=== PATIENT | male | born 1935 | race Caucasian/White ===

== ENCOUNTER 2017-06-13 10:29 | Inpatient (IN) | payer OTHER ==
[2017-06-13] VITALS (9 sets, daily range): BP systolic 127–139; BP diastolic 61–78
[~2017-06-13] VITALS: Ht 172.7 cm; Wt 69.5 kg
[~2017-06-13 10:29] MED LIST: ALTOPREV20 MG PO; AMLODIPINE BESY10 MG PO; CARVEDILOL6.25 MG PO; CLONIDINE HCL0.1 MG PO; DIGITEK250 MC2 PO; HYDRALAZINE HCL10 MG PO; HYZAAR 100-21 TABLET PO; KOMBIGLYZE XR1 EAC2 PO; LANTUS 3 M100 UNITS1 SC; LO-DOSE ASPIRIN81 M1 PO
[2017-06-13 10:52] LABS: BASOPHIL COUNT 0.1 K/uL (0-0.1); EOSINOPHIL (%) 0.3 % (0-5); EOSINOPHIL COUNT 0.1 K/uL (0-0.3); HEMATOCRIT 38.8 % (38.0-50.0); IMMATURE GRANULOCYTE (%) 0.6 % (0.0-0.7); IMMATURE GRANULOCYTE COUNT 0.1 K/uL; INSTRUMENT ABS NEUTROPHIL CT 16.7 K/uL; LYMPHOCYTE COUNT 1.7 K/uL (1.0-2.8); MCH 31.2 PG (29.0-34.0); MCHC 33.2 G/DL (30.0-36.0); MCV 93.9 FL (86-99); MEAN PLAT.VOLUME 11.4 uM^3 (9.0-12.4); MONOCYTE (%) 10.8 % (3-12); MONOCYTE COUNT 2.3 K/uL (0-0.8); NEUTROPHIL (%) 79.8 % (45-76); NEUTROPHIL COUNT 16.7 K/uL (1.8-6.4); PLATELET COUNT 342 K/uL (156-360); RBC DIS.WIDTH-CV 13.7 % (11.8-14.6); RBC DIS.WIDTH-SD 47.1 % (39-53); RED BLOOD COUNT 4.13 M/uL (4.00-5.50); WHITE BLOOD COUNT 20.9 K/uL (4.1-10.2)
[2017-06-13 10:56] LABS: CARBON DIOXIDE (BICARBONATE) 20.4 MEQ/L (20-31)
[2017-06-13 10:59] LABS: PROTHROMBIN TIME 11.1 SEC (10.2-12.9)
[2017-06-13 11:01] LABS: PTT 26.6 SEC (25-37)
[2017-06-13 11:04] LABS: CHLORIDE 103 mEq/L (99-109); POTASSIUM 5.8 mEq/L (3.7-5.4); SODIUM 131 mEq/L (136-147)
[2017-06-13 11:06] LABS: GLUCOSE 197 mg/dL (70-99)
[2017-06-13 11:07] LABS: ANION GAP 13 MEQ/L (2-14)
[2017-06-13 11:10] LABS: GFR ESTIMATE (CALCULATED) 41 mL/min/
[2017-06-13 11:11] LABS: UREA NITROGEN (BUN) 45 mg/dL (9-23)
[2017-06-13 11:13] LABS: TROP-I INTERPRETATION POSITIVE
[2017-06-13 11:17] LABS: TROPONIN-I 13.51 ng/mL (0.0-0.30)
[2017-06-13 11:42] LABS: BASE EXCESS -5.1 mEq/L (-3 to +3); BICARBONATE 18.6 mEq/L (22-26); CARBOXY HGB 1.8 % (0-5); METHEMOGLOBIN 1.2 % (0-1.5); PCO2 30 mm Hg (35-45); PO2 237 mm Hg (80-100)
[2017-06-13 11:43] LABS: COMMENTS - BLOOD GASES A+C+; DEVICE 840; FI02 100 %; MODE SPONT; PEEP 5 CM/H20; PRES. SUPPORT 10 CM/H2O; SITE RR; TOTAL RESP RATE 20 resp/min
[2017-06-13] MEDS ORDERED: ALPHAGAN 0100 DROP/5 RIGHT EYE (11:53)
[2017-06-13 17:55] LABS: METH RESISTANT S AUREUS PCR NEGATIVE (NEGATIVE); PROBE CHECK PASS; SPECIMEN PROCESSING CONTROL PASS
[2017-06-13 18:19] LABS: TROP-I INTERPRETATION POSITIVE; TROPONIN-I 12.32 ng/mL (0.0-0.30)
[2017-06-13 23:58] LABS: POINT-OF-CARE METER ID UU14314082
[2017-06-14] VITALS (18 sets, daily range): BP systolic 108–139; BP diastolic 48–125
[2017-06-14 01:23] LABS: TROP-I INTERPRETATION POSITIVE
[2017-06-14 06:38] LABS: POINT-OF-CARE METER ID UU13113748
[2017-06-14 07:04] LABS: EOSINOPHIL (%) 0.1 % (0-5); IMMATURE GRANULOCYTE (%) 0.5 % (0.0-0.7); IMMATURE GRANULOCYTE COUNT 0.1 K/uL; INSTRUMENT ABS NEUTROPHIL CT 11.5 K/uL; LYMPHOCYTE COUNT 1.3 K/uL (1.0-2.8); MCH 30.5 PG (29.0-34.0); MCHC 33.2 G/DL (30.0-36.0); MCV 91.8 FL (86-99); MEAN PLAT.VOLUME 11.4 uM^3 (9.0-12.4); MONOCYTE (%) 13.7 % (3-12); MONOCYTE COUNT 2.1 K/uL (0-0.8); NEUTROPHIL COUNT 11.5 K/uL (1.8-6.4); PLATELET COUNT 343 K/uL (156-360); RBC DIS.WIDTH-CV 13.4 % (11.8-14.6); RBC DIS.WIDTH-SD 45.7 % (39-53); RED BLOOD COUNT 4.03 M/uL (4.00-5.50); WHITE BLOOD COUNT 14.9 K/uL (4.1-10.2)
[2017-06-14 07:25] LABS: ANION GAP 12 MEQ/L (2-14); CHLORIDE 102 MEQ/L (99-109); GFR ESTIMATE (CALCULATED) 39 mL/min/; GLUCOSE 141 mg/dL (70-99); SAMPLE HEMOLYSIS CHECK 0; SAMPLE ICTERIC CHECK 0; SAMPLE LIPEMIA CHECK 0; SODIUM 135 MEQ/L (136-147); UREA NITROGEN (BUN) 55 mg/dL (9-23)
[2017-06-14 07:32] LABS: POTASSIUM 4.5 MEQ/L (3.7-5.4)
[2017-06-14 07:56] LABS: TROP-I INTERPRETATION POSITIVE; TROPONIN-I 12.26 ng/mL (0.0-0.30)
[2017-06-14 12:05] LABS: POINT-OF-CARE METER ID UU13113748
[2017-06-14 17:35] LABS: POINT-OF-CARE METER ID UU13113748
[2017-06-14 21:43] LABS: POINT-OF-CARE METER ID UU13113748
[2017-06-15] VITALS (8 sets, daily range): BP systolic 109–134; BP diastolic 52–88
[2017-06-15 03:38] LABS: HEMATOCRIT 35.1 % (38.0-50.0); MCHC 33.6 G/DL (30.0-36.0); MCV 92.1 FL (86-99); MEAN PLAT.VOLUME 11.2 uM^3 (9.0-12.4); PLATELET COUNT 298 K/uL (156-360); RBC DIS.WIDTH-CV 13.4 % (11.8-14.6); RBC DIS.WIDTH-SD 45.4 % (39-53); RED BLOOD COUNT 3.81 M/uL (4.00-5.50); WHITE BLOOD COUNT 14.6 K/uL (4.1-10.2)
[2017-06-15 08:01] LABS: POINT-OF-CARE METER ID UU13113748
[2017-06-15 09:21] LABS: ANION GAP 9 MEQ/L (2-14); CHLORIDE 101 MEQ/L (99-109); GFR ESTIMATE (CALCULATED) 41 mL/min/; GLUCOSE 151 mg/dL (70-99); POTASSIUM 4.4 MEQ/L (3.7-5.4); SAMPLE HEMOLYSIS CHECK 0; SAMPLE ICTERIC CHECK 0; SAMPLE LIPEMIA CHECK 0; SODIUM 136 MEQ/L (136-147); UREA NITROGEN (BUN) 60 mg/dL (9-23)
[2017-06-15 12:16] LABS: POINT-OF-CARE METER ID UU13113748
[2017-06-15 17:42] LABS: POINT-OF-CARE METER ID UU13113748
[2017-06-15 22:45] LABS: POINT-OF-CARE METER ID UU13113748
[2017-06-16] VITALS (7 sets, daily range): BP systolic 0–134; BP diastolic 0–92
[2017-06-16 05:29] LABS: BASOPHIL COUNT 0.1 K/uL (0-0.1); EOSINOPHIL (%) 4.2 % (0-5); EOSINOPHIL COUNT 0.5 K/uL (0-0.3); HEMATOCRIT 34.7 % (38.0-50.0); IMMATURE GRANULOCYTE (%) 0.4 % (0.0-0.7); IMMATURE GRANULOCYTE COUNT 0.1 K/uL; INSTRUMENT ABS NEUTROPHIL CT 8.2 K/uL; LYMPHOCYTE COUNT 1.5 K/uL (1.0-2.8); MCH 30.4 PG (29.0-34.0); MCHC 32.6 G/DL (30.0-36.0); MCV 93.3 FL (86-99); MEAN PLAT.VOLUME 11.5 uM^3 (9.0-12.4); MONOCYTE (%) 12.4 % (3-12); MONOCYTE COUNT 1.5 K/uL (0-0.8); NEUTROPHIL (%) 69.8 % (45-76); NEUTROPHIL COUNT 8.2 K/uL (1.8-6.4); PLATELET COUNT 282 K/uL (156-360); RBC DIS.WIDTH-CV 13.4 % (11.8-14.6); RBC DIS.WIDTH-SD 45.5 % (39-53); RED BLOOD COUNT 3.72 M/uL (4.00-5.50); WHITE BLOOD COUNT 11.8 K/uL (4.1-10.2)
[2017-06-16 05:52] LABS: ANION GAP 8 MEQ/L (2-14); CHLORIDE 101 MEQ/L (99-109); GFR ESTIMATE (CALCULATED) 39 mL/min/; GLUCOSE 157 mg/dL (70-99); POTASSIUM 4.6 MEQ/L (3.7-5.4); SAMPLE HEMOLYSIS CHECK 0; SAMPLE ICTERIC CHECK 0; SAMPLE LIPEMIA CHECK 0; SODIUM 135 MEQ/L (136-147); UREA NITROGEN (BUN) 57 mg/dL (9-23)
[2017-06-16 11:44] LABS: POINT-OF-CARE METER ID UU13113803; POINT-OF-CARE USER ID 612031313
[2017-06-16 16:58] LABS: POINT-OF-CARE METER ID UU13113803; POINT-OF-CARE USER ID 612031313
[2017-06-16 22:16] LABS: POINT-OF-CARE METER ID UU14314083
[2017-06-17] VITALS: BP 97/45
[2017-06-17 04:00] VITALS: BP 120/60
[2017-06-17 05:52] LABS: BASOPHIL COUNT 0.1 K/uL (0-0.1); EOSINOPHIL (%) 7.3 % (0-5); EOSINOPHIL COUNT 0.8 K/uL (0-0.3); HEMATOCRIT 33.3 % (38.0-50.0); IMMATURE GRANULOCYTE (%) 0.5 % (0.0-0.7); IMMATURE GRANULOCYTE COUNT 0.1 K/uL; INSTRUMENT ABS NEUTROPHIL CT 6.8 K/uL; LYMPHOCYTE COUNT 1.5 K/uL (1.0-2.8); MCH 30.5 PG (29.0-34.0); MCHC 32.7 G/DL (30.0-36.0); MCV 93.3 FL (86-99); MEAN PLAT.VOLUME 11.2 uM^3 (9.0-12.4); MONOCYTE (%) 16.1 % (3-12); MONOCYTE COUNT 1.8 K/uL (0-0.8); NEUTROPHIL (%) 61.8 % (45-76); NEUTROPHIL COUNT 6.8 K/uL (1.8-6.4); PLATELET COUNT 281 K/uL (156-360); RBC DIS.WIDTH-CV 13.5 % (11.8-14.6); RBC DIS.WIDTH-SD 45.8 % (39-53); RED BLOOD COUNT 3.57 M/uL (4.00-5.50)
[2017-06-17 06:18] LABS: ANION GAP 8 MEQ/L (2-14); CHLORIDE 103 MEQ/L (99-109); GFR ESTIMATE (CALCULATED) 48 mL/min/; GLUCOSE 141 mg/dL (70-99); SAMPLE HEMOLYSIS CHECK 0; SAMPLE ICTERIC CHECK 0; SAMPLE LIPEMIA CHECK 0; SODIUM 137 MEQ/L (136-147); UREA NITROGEN (BUN) 47 mg/dL (9-23)
[2017-06-17 08:00] VITALS: BP 124/68
[2017-06-17] MEDS ORDERED: ENTRESTO 24 MG1 EACH PO (11:36)
[2017-06-17] MEDS ORDERED: FUROSEMIDE20 MG PO (11:36)
[2017-06-17] MEDS ORDERED: CARVEDILOL12.5 MG PO (11:36)
[2017-06-17] MEDS ORDERED: CLOPIDOGREL75 MG PO (11:36)
[2017-06-17] MEDS ORDERED: ALTOPREV20 MG PO (11:36)
[2017-06-17 12:12] LABS: POINT-OF-CARE METER ID UU14208751
== END 2017-06-17 13:50 | disposition home health service (06) | DRG 280 ==
LOC: EME 10:29 → EDOF 14:07 → 4WEST 14:07 → ENRESERV 14:09 → 4WEST 16:25
PROVIDERS: Emergency Medicine; Internal Medicine; Specialist
PROC: 5A09358 Assistance with Respiratory Ventilation, Less than 24 Consecutive Hours, Intermittent Positive Airway Pressure (ICD-10-PCS; principal; 2017-06-13)
DX: I21.4 Non-ST elevation (NSTEMI) myocardial infarction (principal); J96.01 Acute respiratory failure with hypoxia; J96.02 Acute respiratory failure with hypercapnia; I50.41 Acute combined systolic (congestive) and diastolic (congestive) heart failure; N17.9 Acute kidney failure, unspecified; I11.0 Hypertensive heart disease with heart failure; I27.20 Pulmonary hypertension, unspecified; I34.0 Nonrheumatic mitral (valve) insufficiency; E11.9 Type 2 diabetes mellitus without complications; D72.828 Other elevated white blood cell count; I25.10 Atherosclerotic heart disease of native coronary artery without angina pectoris; E78.5 Hyperlipidemia, unspecified; I25.5 Ischemic cardiomyopathy; Z87.891 Personal history of nicotine dependence; Z79.82 Long term (current) use of aspirin; Z79.4 Long term (current) use of insulin
CPT/HCPCS: 36600; 71010; 80048; 82803; 82948; 83605; 83735; 83880; 84100; 84484; 85025; 85027; 85610; 85730; 87641; 93005; 93306; 94002; 94640; 94799; 99281; 99285; J1100; J1815; J1940; J7644